=== PATIENT | female | born 1970 | race Caucasian/White ===

== ENCOUNTER → 2016-10-30 | Outpatient (CLI) | payer OTHER ==
[~2016-10-30] MED LIST: ALBUTEROL17 GM INH; ATARAX PO; CLONAZEPAM0.5 MG PO; DELTASONE20 MG PO; FLONASE; HYDROCHLOROTHIA25 MG PO; HYDROCODONE/APA1 T16 PO; KEFLEX500 M1 PO; LEVOXYL150 MCG PO; LORTAB; OMEPRAZOLE20 M2 PO; OMEPRAZOLE40 M1 PO; PANTOPRAZOLE SO40 MG PO; SYNTHROID0.2 MG PO; ZYRTEC5 M2 PO
--- NOTE | ~2016-10-30 | US128 ---
[id number] [facility]. [facility] [address]. [place], [place] [address] [id number] O MR#: [id number] Acc #: [id number] NAME: LEEANN BROOKE : 1970 SEX: F STUDY DATE/TIME: 10/30/2016 13:24 UNIT: [facility]US ROOM: STUDY DESCRIPTION: Thyroid Attending Physician: Willie Ellsworth M.D. Referring Physician: Willie Ellsworth M.D. Ordering Physician: Willie Ellsworth M.D. Primary Care Physician: aJne Kahn A.P.R.N. MEDICAL IMAGING REPORT This report is preliminary unless electronic signature is present EXAM Thyroid ultrasound, 10/30/2016. HISTORY Hypothyroidism. Patient on levothyroxine for 10 years. Difficulty swallowing for the last 3 months with weight loss. FINDINGS The right thyroid lobe measured 1.3 cm x 1.8 cm x 3.9 cm, while the left thyroid lobe measured 1.2 cm x 1.5 cm x 2.8 cm. The isthmus measured 3 mm in the AP direction. There is a 1.4 cm x 7 mm x 7 mm nodule in the upper pole of the right thyroid lobe. The thyroid is heterogeneous but no additional cystic or solid nodules were identified. There are no masses extrinsic to the thyroid. IMPRESSION Diffusely heterogeneous thyroid demonstrating a discrete 1.4 cm nodule in the upper pole of the right thyroid lobe. Dictated by... Spencer Villalobos M.D. THIS IS AN ELECTRONICALLY VERIFIED REPORT Spencer Villalobos M.D. at 11/01/2016 6:17 AM MYNOR/michelle TD: 10/31/2016 10:40 JOB #: [id number] MEDICAL IMAGING REPORT Page 1 of 1 COPY
== END | disposition home or self-care (01) ==
LOC: CGUS 13:08
DX: E03.9 Hypothyroidism, unspecified (principal); E04.1 Nontoxic single thyroid nodule
CPT/HCPCS: 76536